=== PATIENT | male | born 1935 | race Caucasian/White ===

== ENCOUNTER 2018-10-24 23:58 | Emergency (ER) | payer OTHER ==
[~2018-10-24] VITALS: Ht 167.6 cm; Wt 68.0 kg
[2018-10-25 00:04] VITALS: BP_SYST 175
[2018-10-25 00:38] LABS: BILIRUBIN,URINE NEGATIVE (NEGATIVE); CLARITY/URINE CLEAR (CLEAR); COLOR,URINE YELLOW (YELLOW); GLUCOSE,URINE NEGATIVE (NEGATIVE); KETONES,URINE NEGATIVE (NEGATIVE); LEUKOCYTE ESTERASE ,URINE NEGATIVE (NEGATIVE); NITRITE, URINE NEGATIVE (NEGATIVE); PH,URINE 5.5 (5.0-8.0); PROTEIN URINE TRACE (NEGATIVE); UROBILINOGEN,URINE 0.2 (0.2-1.0)
[2018-10-25 00:43] LABS: BLOOD, URINE TRACE (NEGATIVE)
[2018-10-25 01:02] LABS: BACTERIA,URINE RARE /HPF (None Seen); WBC,URINE 0-3 /HPF (0-3)
[2018-10-25] MEDS ORDERED: TAMSULOSIN HCL 0.4 MG CAP PO ONE (02:15)
[2018-10-25] MEDS ORDERED: TAMSULOSIN HCL 0.4 MG CAP ONE (02:38)
[2018-10-25 06:00] VITALS: BP_SYST 160
== END 2018-10-25 06:00 | disposition home or self-care (01) ==
LOC: SED 23:58
DX: R33.9 Retention of urine, unspecified (principal)
CPT/HCPCS: 81000-TC; 99284

== ENCOUNTER 2018-11-01 18:14 | Emergency (ER) | payer OTHER, BC ==
[~2018-11-01] VITALS: Ht 172.7 cm; Wt 65.8 kg
[2018-11-01 18:15] VITALS: BP_SYST 146
[2018-11-01 20:09] LABS: BILIRUBIN,URINE NEGATIVE (NEGATIVE); BLOOD, URINE TRACE (NEGATIVE); CLARITY/URINE CLEAR (CLEAR); COLOR,URINE YELLOW (YELLOW); GLUCOSE,URINE NEGATIVE (NEGATIVE); KETONES,URINE NEGATIVE (NEGATIVE); LEUKOCYTE ESTERASE ,URINE NEGATIVE (NEGATIVE); NITRITE, URINE NEGATIVE (NEGATIVE); PROTEIN URINE 1+ (NEGATIVE)
[2018-11-01 20:13] LABS: BACTERIA,URINE MODERATE /HPF (None Seen); MUCUS,URINE 2+ /LPF (None Seen)
[2018-11-01 21:19] VITALS: BP_SYST 146
== END 2018-11-01 21:19 | disposition home or self-care (01) ==
LOC: SED 18:14
DX: R33.9 Retention of urine, unspecified (principal); N40.0 Benign prostatic hyperplasia without lower urinary tract symptoms; I10 Essential (primary) hypertension
CPT/HCPCS: 81000-TC; 87086; 99284

== ENCOUNTER 2019-08-31 08:00 | Emergency (ER) | payer OTHER, BC ==
[~2019-08-31] VITALS: Ht 175.3 cm; Wt 90.7 kg
[2019-08-31 08:00] VITALS: BP_SYST 145
[2019-08-31 11:32] VITALS: BP_SYST 145
== END 2019-08-31 11:32 | disposition home or self-care (01) ==
LOC: SED 08:00
DX: R32 Unspecified urinary incontinence (principal); I10 Essential (primary) hypertension; N40.0 Benign prostatic hyperplasia without lower urinary tract symptoms
CPT/HCPCS: 99283